=== PATIENT | female | born 1980 | race Two or more races ===

== ENCOUNTER 2025-08-07 00:45 | Inpatient (IN) | payer MEDICAID, SELFPAY ==
[2025-08-07] VITALS (17 sets, daily range): BP systolic 91–163; BP diastolic 66–98; PULSE 72–106; RESP 16–98; TEMP 35.9–37.6; O2SAT 95–100; BMI 25.6; BMI 25.0
--- NOTE | 2025-08-07 01:07 | EKG_ITS ---
[facility] Test Date: 2025-08-07 Pat Name: JOSE JURADO Department: Room: - Gender: Female Bottler: : 1980 Requested By: Miah Stahl Order Number: [id number] Reading MD: Miah Stahl Measurements Intervals [place] Rate: 77 P: 53 MO: 142 QRS: 59 QRSD: 94 T: 48 QT: 394 QTc: 448 Interpretive Statements SINUS RHYTHM MODERATE ST DEPRESSION [0.05+ mV ST DEPRESSION] Compared to ECG 03/29/2018 11:17:09 ST (T wave) deviation now present /store/S0/[id number].pdf
[2025-08-07] MEDS: SODIUM CHLORIDE 0.9% 1000 ML 1,000 ML 999 ML IV ×2 (01:20→05:02)
[2025-08-07 01:42] LABS: Basophils # (Auto) 0.1 Thou/mm3 (0.0-0.2); Basophils % (Auto) 0 % (0-2.5); Eosinophils # (Auto) 0.2 Thou/mm3 (0.0-0.5); Eosinophils % (Auto) 1 % (0-10); Hematocrit 41.4 % (36.0-46.0); Hemoglobin 13.5 g/dL (12.0-16.0); Immature Granulocytes Auto 0.18 Thou/mm3 (0.00-0.00); Lymphocytes # (Auto) 4.1 Thou/mm3 (1.0-4.8); Lymphocytes % (Auto) 15 % (10-50); Mean Corpuscular HGB Conc 32.6 g/dl (31.0-37.0); Mean Corpuscular Hemoglobin 30.8 pg (25.0-35.0); Mean Corpuscular Volume 94 fL (80-100); Monocytes # (Auto) 0.4 Thou/mm3 (0.0-0.8); Monocytes % (Auto) 2 % (0-12); Neutrophils # (Auto) 22.4 Thou/mm3 (1.8-7.7); Neutrophils % (Auto) 82 % (37-80); Nucleated Red Blood Cell # 0.00 Thou/mm3 (0.00-0.00); Nucleated Red Blood Cell % 0 /100 WBC (0); Platelet Count 473 Thou/mm3 (140-440); RDW Standard Deviation 43.1 fL (36.4-46.3); Red Blood Count 4.39 Miln/mm3 (4.00-5.20); White Blood Count 27.4 Thou/mm3 (3.6-11.0)
[2025-08-07 01:56] LABS: Alanine Aminotransferase 18 U/L (10-49); Albumin, Serum 4.9 gm/dL (3.5-5.0); Albumin/Globulin Ratio 1.7 (1.2-2.2); Alkaline Phosphatase 46 U/L (46-116); Anion Gap 17 (7-16); Aspartate Amino Transferase 38 U/L (0-34); BUN/Creatinine Ratio 7 Ratio (12-20); Bilirubin,Total 0.3 mg/dL (0.3-1.2); Blood Urea Nitrogen 8 mg/dL (9-23); Calcium 10.4 mg/dL (8.3-10.6); Calcium (Corrected) 10.4 mg/dL (8.5-10.1); Carbon Dioxide 22.4 mMol/L (20.0-31.0); Chloride 100 mMol/L (98-107); Creatinine (Component) 1.1 mg/dL (0.6-1.3); Estimated Creatinine Clearance 56.0 mL/min (>60); Globulin 2.9 gm/dL (2.3-3.5); Glucose 157 mg/dL (74-106); Osmolality,Calculated 278 (275-295); Sodium 139 mMol/L (136-145); Total Protein 7.8 gm/dL (5.7-8.2); Troponin I < 0.020 ng/mL (0.0-0.045); eGFR > 60 See Note
[2025-08-07 01:58] LABS: Potassium 2.3 mMol/L (3.4-5.1)
--- NOTE | 2025-08-07 02:21 | EDNOTE_ITS ---
ED Syncope RME/HPI General Chief Complaint: Syncope / Near Syncope Stated Complaint: HYPOTENSION Arrival date/time: 08/07/25 00:45 RME / HPI RME / HPI narrative: Dr. Willoughby?s Main ED Evaluation: 45yo female arrives by EMS after patient reportedly suffered from constipation then developed lower abdominal cramping followed by rectal urgency, became lightheaded, diaphoretic, and near syncope. Patiet let herself to ground then to commode then syncopized x2-3 minutes. EMS summoned. Blood pressure was initially 70-80 range. IV established by EMS and 400 cc bolus given with improvement of systolic to 90. PMH HTN. PSH tubal litigation. Nonsmoker, nondrinker. Related Data Home Medications ?Medication ?Instructions ?Recorded ?Confirmed benazepril 20 mg tablet (Lotensin) 20 mg PO QDAY #0 ta bs 07/21/17 03/29/18 hydrochlorothiazide 25 mg tablet 25 mg PO QAM #0 tabs 07/21/17 03/29/18 Allergies Allergy/AdvReac Type Severity Reaction Status Date / Time latex Allergy Rash Verified 03/30/18 12:10 Review of Systems Review of Systems Systems Reviewed: All systems reviewed, normal except as documented Past Medical History Past Medical History NEUROLOGIC: Negative Neurological Disorders or Seizures CARDIAC: Positive Cardiac Disorders and Hypertension (TAKES MED); Negative Congestive Heart Failure RESPIRATORY: Negative Chronic Obstructive Pulmonary Disease (COPD) GASTROINTESTINAL: Negative Gastrointestinal Disorders GENITOURINARY: Negative Genitourinary Disorders or Renal Disease REPRODUCTIVE: Positive Previous Pregnancies (X5) MUSCULOSKELETAL: Positive Musculoskeletal Disorders ENDOCRINE: Negative Endocrine Disorders, Diabetes Mellitus Type 1 or Diabetes Mellitus Type 2 HEMATOLOGIC: Negative Blood Disorders OTHER HISTORY: Positive Chicken Pox; Negative Autoimmune Disease Family History FAMILY HISTORY: Positive Family Psychiatric Problems (FATHER), Family Respiratory Disorders (SISTER), Family Gastrointestinal Problems (MOTHER), Family Cancer (BROTHER) and Family Surgery (MOTHER,SISTER) Surgical History SURGICAL: Positive Tubal Ligation (2005) Social History SMOKING STATUS: Former smoker ED Exam Narrative Physical exam: GENERAL APPEARANCE: alert and oriented x 4, actively having diarrhea, no acute distress VITALS: All vitals were reviewed and the pulse ox is 100% on room air, which is normal according to my interpretation. HEENT: Normocephalic, atraumatic; pupils equal, round, reactive to light; EOMI; mucous membranes pink, moist; oropharynx clear NECK: Supple LUNGS: CTABL; no wheezes, no rales, no rhonchi HEART: Regular rate, regular rhythm; normal S1, S2; no murmurs ABDOMEN: non distended; soft, mild suprapubic tenderness, no guarding, no rebound; no masses, no organomegaly, no hernia BACK: no CVA tenderness EXTREMITIES: atraumatic; no edema NEUROLOGIC: awake; alert and oriented x4; cranial nerves II-XII grossly intact; no focal sensory or motor deficits PSYCHIATRIC: appropriate mood and affect SKIN: warm, dry, slightly pale; no rashes Course Quality Measures none Orders Category Date Time Status EKG (ED ONLY) *Do not use* NOW Care 08/07/25 01:07 Completed Insert IV NOW Care 08/07/25 01:[address] abdomen pelvis wo con Stat Exams 08/07/25 04:37 Ordered EKG (ED Only) Stat Exams 08/07/25 01:07 Draft CBC Stat Lab 08/07/25 01:23 Completed CMP [Comprehensive Metabolic Panel] Stat Lab 08/07/25 01:23 Completed Drug Screen,Urine Stat Lab 08/07/25 01:07 Ordered Magnesium Stat Lab 08/07/25 01:23 Completed Norovirus, EIA (Stool)* Stat Lab 08/07/25 Ordered Stool Culture Stat Lab 08/07/25 04:36 Ordered Stool for WBCs Stat Lab 08/07/25 04:37 Ordered Troponin I Stat Lab 08/07/25 01:23 Completed UA, C/S IF [Urinalysis, C/S if Indicated] Stat Lab 08/07/25 01:07 Ordered POTASSIUM CHL 10 mEq IVPB [Kcl Ivpb] Med 08/07/25 02:19 Active 10 meq in 100 ml IV Q1H Potassium Chloride [K-Dur] Med 08/07/25 02:19 Discontinued 40 meq PO X1 ONE Sodium Chloride 0.9% 1000 ml [Ns] 1,000 ml Med 08/07/25 01:08 Discontinued IV 999 mls/hr Sodium Chloride 0.9% 1000 ml [Ns] 1,000 ml Med 08/07/25 04:37 Active IV 999 mls/hr cefTRIAXone/D5w 1gm IV premix [Rocephin/D5w 1gm IV Med 08/07/25 04:43 Active premix] 1 gm in 50 ml IV X1 metroNIDAZOLE/NS 500 MG IVPB [Flagyl 500 mg IV] Med 08/07/25 04:42 Active 500 mg in 100 ml IV X1 Vital Signs Vital signs: Vital Signs Temperature 96.6 F L 08/07/25 01:10 Pulse Rate 72 08/07/25 01:10 Respiratory Rate 16 08/07/25 01:10 Blood Pressure 91/66 08/07/25 01:10 Pulse Oximetry (%) 100 08/07/25 01:10 Oxygen Delivery Method Room Air 08/07/25 01:10 Syncope MDM Narrative MDM Narrative:: Scribe Attestation: 08/07/25 - Aurora Naranjo am scribing for and in the presence of Dr. Willoughby. 45yo female arrives by EMS after patient reportedly suffered from constipation then developed lower abdominal cramping followed by rectal urgency, became lightheaded, diaphoretic, and near syncope. Patiet let herself to ground then to commode then syncopized x2-3 minutes. Please see PE findings. Lab markers demon strated elevated WBC count 27.4, Hgb 13.5, Plt 473. Chemistries notable for K 2.3, CO2 22, anion gap mildly elevated at 11. Patient was aggressively hydrated, placed on traffic monitor specialist, and had potassium replaced both PO and IV. Patient enrolled in sepsis protocol and referred for CT scan. Blood pressure gradually improved. Patient likely to be admitted for further evaluation, monitoring, and treatment. Dx: vasovagal episode, acute diarrheal illness, hypokalemia, acute sepsis Patient data External records reviewed:: [facility] previous records (Per chart review, patient has no previous ED visits or admissions to this facility.) and EMS form Clinical information provided by:: patient Social determinants that could affect healthcare access:: none Patient has the following chronic illnesses:: HTN How is presenting disease/condition affected by chronic disease/condition?: uneffected by Evaluation data The following diagnostics were reviewed and interpreted by me:: lab results and EKG tracing(s) Lab and/or radiology exams considered but not ordered:: none Interpretation Summary: EKG done at 0113, sinus rhythm, rate of 77, no acute pathological ST segment changes, no ectopy, normal intervals, left axis deviation, according to my interpretation. Medications / Prescriptions Medications or Prescriptions considered but not ordered:: none Medication administrations:: Medication Administration History Potassium Chloride (Kcl Ivpb) 10 meq in 100 mls @ 100 mls/hr IV Q1H NATALYA Stop: 08/07/25 05:18 Last Admin: 08/07/25 04:58 Dose: 100 mls/hr Documented By: Infusion: 08/07/25 04:48 Dose: Infused Documented By: Admin: 08/07/25 03:48 Dose: 100 mls/hr Documented By: Infusion: 08/07/25 03:44 Dose: Infused Documented By: Admin: 08/07/25 02:44 Dose: 100 mls/hr Documented By: CCT Sodium Chloride (Ns) 1,000 mls @ 999 mls/hr IV .Q1H1M ONE Stop: 08/07/25 05:37 Last Admin: 08/07/25 05:02 Dose: 999 mls/hr Documented By: CCT Metronidazole (Flagyl 500 Mg Iv) 500 mg in 100 mls @ 100 mls/hr IV X1 ONE Stop: 08/07/25 05:41 Ceftriaxone Sodium/Dextrose (Rocephin/D5w 1gm Iv Premix) 1 gm in 50 mls @ 100 mls/hr IV X1 ONE Stop: 08/07/25 05:12 Discontinued Medications Sodium Chloride (Ns) 1,000 mls @ 999 mls/hr IV .Q1H1M ONE Stop: 08/07/25 02:08 Last Infusion: 08/07/25 02:58 Dose: Infused Documented By: Admin: 08/07/25 01:20 Dose: 999 mls/hr Documented By: CCT Potassium Chloride (Potassium Chloride 20 Meq Tabcr) 40 meq PO X1 ONE Stop: 08/07/25 02:20 Last Admin: 08/07/25 02:43 Dose: 40 meq Documented By: CCT see above Consultations Consultation(s) initiated? (list below): Yes Consultation #1 (Physician, Specialty, Details): Discussed case with the resident physician, attending Dr. Bravo from Hospitalist service regarding admission. Discussed patients ED course, exam findings, labs, and radiology results. The Hospitalist will pass this case off to the day team. Time: 05:05 Diagnosis Syncope Differential Diagnosis: syncope due to orthostatic hypotension, vasovagal syncope, dehydration and other (electrolyte abnormality) Most likely diagnosis given after review of the tests above:: vasovagal episode, acute diarrheal illness, hypokalemia Admission Indicated Admission indicated?: indicated Admission Request Was there a request for admission?: Yes Admission Attestation Admission request attestation: Discussed case with [] from Hospitalist service regarding admission. Discussed patients ED course, exam findings, labs, and radiology results. The Hospitalist [agrees,declines] to accept the patient for admission. Disposition Plan Disposition Plan: Admit Discharge Plan Plan Patient Disposition: Admit Acute Care w/in Hospital Prescriptions/Referrals Prescriptions/Med Rec: No Action benazepril [Lotensin] 20 MG tablet 20 mg PO QDAY Qty: 0 hydrochlorothiazide 25 MG tablet 25 mg PO QAM Qty: 0 Referrals: Ervin Dean MD [Primary Care Provider, Family Practice] - In 1 week Problem List Clinical Impression: Vasovagal syncope, Diarrhea, Acute hypokalemia, Sepsis Patient/Caregiver Discharge Instructions Print Language: Ecuadorean Stand Alone Forms: Paulina Award Info., Patient Portal Info Letter
[2025-08-07 02:41] LABS: Magnesium 2.5 mg/dL (1.6-2.6)
[2025-08-07] MEDS: POTASSIUM CHL 10 mEq IVPB 10 MEQ/100 ML BAG 100 MEQ IV ×3 (02:44→04:58)
--- NOTE | 2025-08-07 04:37 | XR_ITS ---
Examination: CT abdomen and pelvis without contrast. Coronal 3-D reconstructions. Sagittal 2-D reconstructions. Date and time of exam: August 07, 2025, 0526 hours Onset abdominal pain with hypotension today CTDI: vol (mGy): 6.33 DLP: (mGycm): 338 Technique: Axial images of the abdomen have been obtained, 3 mm slice thickness Intravenous contrast material has not been administered. Low dose protocols were performed. One or more of the following dose reduction techniques were used; automated exposure control, adjustment of the mA and/or KV according to patient size, use of iterative reconstruction technique. Findings: No visualized liver or splenic lesion No gallstones No pancreatic or adrenal mass. No renal or ureteral calculi, no hydronephrosis Fluid distended colon Normal appendix The entire colon especially the transverse colon descending colon and the sigmoid colon including rectum show thickening and significant inflammatory change Also there is abnormal thickening of the johnson of small bowel in the ileal segments Bladder intact Poorly defined uterine masses on this noncontrast study IMPRESSION: Severe colitis enteritis pattern, differential would include Crohn's disease, ulcerative colitis Recommend pelvic sonography follow-up
--- NOTE | 2025-08-07 05:25 | PC.NURSE ---
Pt taken to CT via [facility]
--- NOTE | 2025-08-07 05:56 | PRELIM_ITS ---
CT abdomen and pelvis without intravenous or oral contrast. Axial images with coronal and sagittal reconstructions. Clinical history: Rule out colitis. Findings: The lung bases are clear. Liver, gallbladder, adrenal glands, spleen and pancreas are unremarkable. Normal kidneys. The urinary bladder is normal. There is mucosal thickening of the transverse colon through rectum. Prominent mesenteric fat stranding in the pelvis. The abdominal wall is unremarkable. No acute osseous process. Fibroid uterus with fibroids up to 3 cm. No free intraperitoneal air or fluid. Impression: Prominent colitis of the transverse colon through rectum. Fibroid uterus. Report Electronically Signed By: Aakash Shrestha 08/07/2025 5:55:05 AM [EST]
[2025-08-07] MEDS: cefTRIAXone/D5w 1gm IV premix 1 GM/50 ML BAG IV (06:06)
[2025-08-07] MEDS: metroNIDAZOLE/NS 500 MG IVPB 500 MG/100 ML BAG 100 MG IV (06:34)
[2025-08-07 06:46] LABS: Stool for WBCs Negative (Negative)
--- NOTE | 2025-08-07 07:30 | PC.NURSE ---
REPORT RECEIVED FROM JOANN BERNAL. PT RESTING QUIETLY IN ROOM W/ AT BEDSIDE. NO COMPLAINTS OF PAIN, DISCOMFORT OR DISTRESS. WILL CONT TO MONITOR.
--- NOTE | 2025-08-07 09:19 | ESHP_ITS ---
Documentation for date of: 08/07/25 [facility] History of Present Illness History of present illness: 45-year-old female with a history of hypertension and depression presented to the ED after a witnessed syncopal episode at home. This event was preceded by a three-day history of non-specific stomach pain that progressed to lower abdominal cramping and constipation. Last night at 9:00 PM, she developed sudden rectal urgency, and while on the toilet, she experienced simultaneous vomiting, flushing, and presyncope. Lying on the floor provided transient relief, but upon attempting to return to the toilet, she had a witnessed, brief loss of consciousness. Family members noted she was diaphoretic but reported no seizure activity. Since arriving at the hospital, she has had four episodes of watery diarrhea. She denies recent antibiotic use, known cardiac issues (other than controlled HTN), or a history of seizures, but she does report a similar syncopal event two years prior for which no cardiac cause was identified. ED course: Vitals in ED include temperature 96.6, BP 91/66, pulse 72, resp 16, oxygen saturation 100% on room air. Notable labs include WBC 27.4 with a left shift, potassium 2.3, creatinine 1.1 (baseline creatinine around 0.5), BUN 8, procalcitonin 3.45, lipase 22. CT abdomen showed severe colitis enteritis pattern. Patient received 2 L of 6 of sodium chloride boluses, potassium chloride 80 mill equivalents, ceftriaxone 1 g x 1, metronidazole 500 mg x 1. Past medical history: As stated above. Past surgical history: tubal ligation 19 years ago Allergies: Latex (rash) Family history: Noncontributory. 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 Review of Systems Review of Systems Narrative Review of Systems: All systems reviewed negative unless stated otherwise above. Exam Vital Signs Temp Pulse Resp BP Pulse Ox O2 Del Method 99.0 F 74 20 160/85 H 100 Room Air 08/07/25 08:48 08/07/25 08:48 08/07/25 08:48 08/07/25 08:48 08/07/25 08:48 08/07/25 08:48 Narrative Exam GENERAL: alert and oriented x 4, no acute distress, conversing well but a little sleepy HEENT: Normocephalic, atraumatic; PERRL; EOMI; mucous membranes pink, moist; oropharynx clear NECK: Supple LUNGS: CTABL; no wheezes, no rales, no rhonchi HEART: Regular rate, regular rhythm; normal S1, S2; no murmurs/rubs/gallops ABDOMEN: non distended; soft, mild suprapubic tenderness, no guarding, no rebound; no masses, no organomegaly, no hernia EXTREMITIES: atraumatic; no edema NEURO: awake; cranial nerves II-XII grossly intact; no focal sensory or motor deficits PSYCHIATRIC: appropriate mood and affect SKIN: warm, dry, slightly pale; no rashes Results: Labs 08/07/25 09:08 08/08/25 04:40 Labs: Short CBC 08/07/25 Range/Units 01:23 WBC 27.4 H (3.6-11.0) Thou/mm3 Hgb 13.5 (12.0-16.0) g/dL Hct 41.4 (36.0-46.0) % Plt Count 473 H (140-440) Thou/mm3 BMP 08/07/25 01:23 Sodium 139 Potassium 2.3 L* Chloride 100 Carbon Dioxide 22.4 BUN 8 L Creatinine 1.1 Glucose 157 H Calcium 10.4 Cardiac Enzymes 08/07/25 Range/Units 01:23 Troponin I < 0.020 (0.0-0.045) ng/mL Liver Function 08/07/25 Range/Units 01:23 Total Bilirubin 0.3 (0.3-1.2) mg/dL AST 38 H (0-34) U/L ALT 18 (10-49) U/L Alkaline Phosphatase 46 (46-116) U/L Albumin 4.9 (3.5-5.0) gm/dL Quality Measures Quality Measures none Medications Home Medications and Allergies Home Medications ?Medication ?Instructions ?Recorded ?Confirmed ?Type benazepril 20 mg tablet (Lotensin) 20 mg PO QDAY #0 ta bs 07/21/17 08/07/25 History hydrochlorothiazide 25 mg tablet 25 mg PO QAM #0 tabs 07/21/17 08/07/25 History sertraline 25 mg tablet 25 mg PO QDAY 08/07/2508/07 History Allergies Allergy/AdvReac Type Severity Reaction Status Date / Time latex Allergy Rash Verified 03/30/18 12:10 Visit Medications Acetaminophen (Acetaminophen 325 Mg Tablet) 650 mg PO Q6H PRN PRN Reason: PAIN OR FEVER > 101 Stop: 09/06/25 08:07 Heparin Sodium (Porcine) (Heparin Sod Inj 5000 Unit/Ml Vial) 5,000 unit SC Q8HR NATALYA Stop: 08/21/25 13:59 Piperacillin/Tazobactam/Dextrose (Zosyn) 3.375 gm in 50 mls @ 12.5 mls/hr IV Q8HR NATALYA; Protocol Stop: 08/14/25 13:59 Lactated Ringer's (Lactated Ringers) 1,000 mls @ 100 mls/hr IV .Q10H NATALYA Stop: 08/08/25 04:41 Discontinued Medications Sodium Chloride (Ns) 1,000 mls @ 999 mls/hr IV .Q1H1M ONE Stop: 08/07/25 02:08 Last Infusion: 08/07/25 02:58 Dose: Infused Potassium Chloride (Kcl Ivpb) 10 meq in 100 mls @ 100 mls/hr IV Q1H NATALYA Stop: 08/07/25 05:18 Last Infusion: 08/07/25 06:00 Dose: Infused Sodium Chloride (Ns) 1,000 mls @ 999 mls/hr IV .Q1H1M ONE Stop: 08/07/25 05:37 Last Infusion: 08/07/25 06:12 Dose: Infused Metronidazole (Flagyl 500 Mg Iv) 500 mg in 100 mls @ 100 mls/hr IV X1 ONE Stop: 08/07/25 05:41 Last Admin: 08/07/25 06:34 Dose: 100 mls/hr Ceftriaxone Sodium/Dextrose (Rocephin/D5w 1gm Iv Premix) 1 gm in 50 mls @ 100 mls/hr IV X1 ONE Stop: 08/07/25 05:12 Last Infusion: 08/07/25 06:36 Dose: Infused Piperacillin/Tazobactam/Dextrose (Zosyn) 3.375 gm in 50 mls @ 12.5 mls/hr IV Q8HR NATALYA; Protocol Stop: 08/14/25 08:21 Piperacillin/Tazobactam/Dextrose (Zosyn) 3.375 gm in 50 mls @ 100 mls/hr IV X1 ONE; Protocol Stop: 08/07/25 08:59 Potassium Chloride (Potassium Chloride 20 Meq Tabcr) 40 meq PO X1 ONE Stop: 08/07/25 02:20 Last Admin: 08/07/25 02:43 Dose: 40 meq Assessment & Plan Plan 45-year-old female with a history of hypertension and depression presented to the ED after a witnessed syncopal episode at home. Patient has been admitted to hospital for gastroenteritis requiring supportive management. #Acute diarrhea 2/ #Gastroenteritis #Sepsis ruled out Differentials include viral/bacterial gastroenteritis, C. difficile, IBD Diarrhea that started yesterday, no blood No evidence of endorgan damage CT abdomen 08/07 shows entire colon especially the transverse colon, descending colon, sigmoid colon, including the rectum, thickening and significant inflammatory change. There are also abnormal thickening of the small bowel in the ileal segments. Patient received 2 L of liters of normal saline boluses in ED and blood pressure improved Plan ? Stool culture for viral/C. difficile ? Fecal calprotectin ? Follow blood culture, urine culture #Syncope Likely secondary to vasovagal No history of cardiac disease Blood pressure on admission was low, however responsive to IV fluids Plan ? Obtain orthostatic vitals once blood pressure once blood pressure is stable #Hypokalemia, resolving Secondary to GI losses from vomiting and diarrhea Initial potassium was 2.3 which improved to 3.9 following potassium replacement Plan ?Replete potassium as necessary #History of essential hypertension Patient takes hydrochlorothiazide 25 mg daily, benazepril 20 mg daily Plan ? Resume home medications #History of depression ? Patient takes sertraline 25 mg daily Plan ? Resume home medication Health Maintenance: Diet: Regular GI prophylaxis: None at this time DVT prophylaxis: Heparin) 5000 every 8 hours Antibiotics: Zosyn CODE STATUS: Full Disposition: Med/tele Case discussed with my attending Dr. Madrigal, and senior resident, Dr. Jean Carlos Chambers MD PGY-1 Attending Provider Attestation/Addendum I reviewed labs, imaging, EKG, home medications and prior available records. Face to face evaluation was performed by me. I have personally examined the patient and discussed assessment and plan with the IM team. I reviewed the resident note and agree with the plan with exceptions as below. Acute colitis Leukocytosis Syncope CELESTE Hypokalemia CT showed colitis Started IV Zosyn IV fluids Monitor kidney function. Avoid nephrotoxins Replete potassium as needed and follow-up BMP
[2025-08-07 09:41] LABS: Basophils # (Auto) 0.0 Thou/mm3 (0.0-0.2); Basophils % (Auto) 0 % (0-2.5); Eosinophils # (Auto) 0.0 Thou/mm3 (0.0-0.5); Eosinophils % (Auto) 0 % (0-10); Hematocrit 35.9 % (36.0-46.0); Hemoglobin 11.9 g/dL (12.0-16.0); Immature Granulocytes Auto 0.09 Thou/mm3 (0.00-0.00); Lymphocytes # (Auto) 0.7 Thou/mm3 (1.0-4.8); Lymphocytes % (Auto) 4 % (10-50); Mean Corpuscular HGB Conc 33.1 g/dl (31.0-37.0); Mean Corpuscular Hemoglobin 30.4 pg (25.0-35.0); Mean Corpuscular Volume 92 fL (80-100); Monocytes # (Auto) 0.6 Thou/mm3 (0.0-0.8); Monocytes % (Auto) 3 % (0-12); Neutrophils # (Auto) 16.2 Thou/mm3 (1.8-7.7); Neutrophils % (Auto) 92 % (37-80); Nucleated Red Blood Cell # 0.00 Thou/mm3 (0.00-0.00); Nucleated Red Blood Cell % 0 /100 WBC (0); Platelet Count 354 Thou/mm3 (140-440); RDW Standard Deviation 41.2 fL (36.4-46.3); Red Blood Count 3.91 Miln/mm3 (4.00-5.20); White Blood Count 17.6 Thou/mm3 (3.6-11.0)
[2025-08-07] MEDS: RINGERS LACTATED 1000 ML 1,000 ML 100 ML IV ×2 (09:42→19:25)
[2025-08-07] MEDS: PIPER/TAZO 3.375 GM PREMIX 3.375 GM/50 ML BAG IV ×3 (09:43→21:17)
--- NOTE | 2025-08-07 09:54 | PC.NURSE ---
REPORT CALLED TO HALIMA BERNAL ON TELE. PT TO BE TRANSFERRED TO ROOM #253.
[2025-08-07 10:19] LABS: Alanine Aminotransferase 36 U/L (10-49); Albumin, Serum 4.0 gm/dL (3.5-5.0); Albumin/Globulin Ratio 1.7 (1.2-2.2); Alkaline Phosphatase 35 U/L (46-116); Anion Gap 11 (7-16); Aspartate Amino Transferase 45 U/L (0-34); BUN/Creatinine Ratio 10 Ratio (12-20); Bilirubin,Total 0.5 mg/dL (0.3-1.2); Blood Urea Nitrogen 8 mg/dL (9-23); Calcium 8.5 mg/dL (8.3-10.6); Calcium (Corrected) 8.5 mg/dL (8.5-10.1); Carbon Dioxide 20.6 mMol/L (20.0-31.0); Chloride 108 mMol/L (98-107); Creatinine (Component) 0.8 mg/dL (0.6-1.3); Estimated Creatinine Clearance 76.9 mL/min (>60); Globulin 2.4 gm/dL (2.3-3.5); Glucose 142 mg/dL (74-106); Lipase 22 U/L (12-53); Osmolality,Calculated 279 (275-295); Potassium 3.9 mMol/L (3.4-5.1); Sodium 140 mMol/L (136-145); Thyroid Stimulating Hormone 0.60 uIU/mL (0.55-4.78); Total Protein 6.4 gm/dL (5.7-8.2); eGFR > 60 See Note
--- NOTE | 2025-08-07 10:20 | PC.NURSE ---
Transferred pt to room #352 via w/c accompanied by RN and pt's daughter. Care endorsed to Shawn BERNAL.
[2025-08-07 11:59] LABS: Procalcitonin 3.45 ng/ml (0.0-0.49)
[2025-08-07] MEDS: HEPARIN SOD INJ 5000 UNIT/ML VIAL SC ×2 (13:50→21:17)
[2025-08-07 14:02] LABS: Glucose Estimated Average 100 mg/dL (80-131); Hemoglobin A1C 5.1 % Hgb (4.8-6.0)
[2025-08-07] MEDS: ONDANSETRON INJ 2 MG/ML INJ 2 ML 4 MG IVP (16:38)
[2025-08-07 20:01] LABS: Collection Type, Urine Clean Catch
[2025-08-07 20:14] LABS: Bilirubin,Urine Negative (Negative); Blood,Urine 1+ (Negative); Clarity,Urine Clear (Clear/Hazy); Color,Urine Colorless (Lt Yel-Yel); Culture Indicated,Urine Not Indicated; Glucose, Urine Negative (Negative); Ketones,Urine Negative (Negative); Leukocyte Esterase,Urine Negative (Negative); Nitrite,Urine Negative (Negative); PH,Urine 5.5 (5.0-7.0); Protein,Urine Negative (Neg - Trace); RBC,Urine 20 /hpf (0-3); Specific Gravity,Urine 1.009 (1.001-1.035); Squamous Epithelial Cell,Urine 1 /hpf (0-5); Urobilinogen,Urine Negative mg/dL (0.0-1.0); WBC,Urine 1 /hpf (0-5)
[2025-08-07 20:37] LABS: Amphetamine/Methamp Scrn,U Negative (Negative); Barbiturate Screen,Urine Negative (Negative); Benzodiazepines Screen,Urine Negative (Negative); Benzoylecgonine Screen, Ur Negative (Negative); Fentanyl Screen,Urine Negative (Negative); Opiate Screen,Urine Positive (Negative); THC Screen,Urine Negative (Negative)
[2025-08-07] MEDS: SERTRALINE HCL 25 MG TABLET PO (21:17)
[2025-08-08] VITALS (8 sets, daily range): BP systolic 91–143; BP diastolic 60–85; PULSE 81–122; RESP 13–98; TEMP 36.2–37.7; O2SAT 95–98; BMI 25.0
[2025-08-08] MEDS: PIPER/TAZO 3.375 GM PREMIX 3.375 GM/50 ML BAG IV ×3 (05:27→23:01)
[2025-08-08] MEDS: HEPARIN SOD INJ 5000 UNIT/ML VIAL SC ×2 (05:28→21:05)
[2025-08-08 05:50] LABS: Alanine Aminotransferase 20 U/L (10-49); Albumin, Serum 3.6 gm/dL (3.5-5.0); Albumin/Globulin Ratio 1.7 (1.2-2.2); Alkaline Phosphatase 29 U/L (46-116); Anion Gap 12 (7-16); Aspartate Amino Transferase 24 U/L (0-34); BUN/Creatinine Ratio 10 Ratio (12-20); Bilirubin,Total 0.7 mg/dL (0.3-1.2); Blood Urea Nitrogen 6 mg/dL (9-23); Calcium 8.4 mg/dL (8.3-10.6); Calcium (Corrected) 8.7 mg/dL (8.5-10.1); Carbon Dioxide 25.1 mMol/L (20.0-31.0); Chloride 101 mMol/L (98-107); Creatinine (Component) 0.6 mg/dL (0.6-1.3); Estimated Creatinine Clearance 101.6 mL/min (>60); Globulin 2.1 gm/dL (2.3-3.5); Glucose 143 mg/dL (74-106); Osmolality,Calculated 275 (275-295); Potassium 3.7 mMol/L (3.4-5.1); Sodium 138 mMol/L (136-145); Total Protein 5.7 gm/dL (5.7-8.2); eGFR > 60 See Note
[2025-08-08] MEDS: ACETAMINOPHEN 325 MG TABLET 650 MG PO ×2 (07:40→17:06)
[2025-08-08 07:48] LABS: Basophils # (Auto) 0.0 Thou/mm3 (0.0-0.2); Basophils % (Auto) 0 % (0-2.5); Eosinophils # (Auto) 0.0 Thou/mm3 (0.0-0.5); Eosinophils % (Auto) 0 % (0-10); Hematocrit 34.4 % (36.0-46.0); Hemoglobin 11.6 g/dL (12.0-16.0); Immature Granulocytes Auto 0.07 Thou/mm3 (0.00-0.00); Lymphocytes # (Auto) 2.0 Thou/mm3 (1.0-4.8); Lymphocytes % (Auto) 11 % (10-50); Mean Corpuscular HGB Conc 33.7 g/dl (31.0-37.0); Mean Corpuscular Hemoglobin 30.8 pg (25.0-35.0); Mean Corpuscular Volume 91 fL (80-100); Monocytes # (Auto) 1.2 Thou/mm3 (0.0-0.8); Monocytes % (Auto) 7 % (0-12); Neutrophils # (Auto) 15.0 Thou/mm3 (1.8-7.7); Neutrophils % (Auto) 82 % (37-80); Nucleated Red Blood Cell # 0.00 Thou/mm3 (0.00-0.00); Nucleated Red Blood Cell % 0 /100 WBC (0); Platelet Count 346 Thou/mm3 (140-440); RDW Standard Deviation 41.8 fL (36.4-46.3); Red Blood Count 3.77 Miln/mm3 (4.00-5.20); White Blood Count 18.2 Thou/mm3 (3.6-11.0)
--- NOTE | 2025-08-08 08:18 | XR_ITS ---
Examination: Pelvic ultrasound, transabdominal, complete Technique: Transabdominal ultrasound of the pelvis performed using grayscale imaging Date and time of exam: August 08, 2025, 0833 hours INDICATIONS: Abdominal pain and vomiting beginning 3 days ago, mass in the pelvis in the uterus on CT pelvis study yesterday FINDINGS: Uterus 9.5 cm Multiple uterine masses, anterior 3.1 x 3.3 cm posterior 4.5 x 4.1 cm anterior uterine body 2.5 x 2.6 cm Endometrial stripe 0.5 cm Right ovary 2.8 cm arterial flow Left ovary 2.5 cm arterial flow IMPRESSION: Multiple uterine areas of fibroid degeneration Recommend 6-month follow-up transvaginal pelvic sonography
[2025-08-08] MEDS: RINGERS LACTATED 1000 ML 1,000 ML 100 ML IV (08:38)
--- NOTE | 2025-08-08 10:31 | PD.RESPRO ---
Documentation for date of: 08/08/25 Subjective Subjective Interval history: Patient seen at bedside. No acute overnight events. Patient denies any chest pain, shortness of breath, abdominal pain, nausea, vomiting, dizziness. Imaging and labs reviewed. Patient tachycardic, CT abdomen done 08/07 shows poorly defined uterine masses so decided to do pelvic ultrasound to investigate. Pelvic ultrasound shows multiple fibroids, recommended 6-month follow-up for reevaluation. Patient also receiving 1 L of LR at 100 cc an hour. Patient mentioned does not take benazepril 20 mg daily. Exam Vital Signs Temp Pulse Resp BP Pulse Ox O2 Del Method 98.9 F 81 14 118/76 97 Room Air 08/08/25 08:00 08/08/25 08:37 08/08/25 08:00 08/08/25 08:37 08/08/25 08:00 08/08/25 08:00 Narrative Exam GENERAL: alert and oriented x 4, no acute distress, conversing well but a little sleepy HEENT: Normocephalic, atraumatic; PERRL; EOMI; mucous membranes pink, moist; oropharynx clear NECK: Supple LUNGS: CTABL; no wheezes, no rales, no rhonchi HEART: Regular rate, regular rhythm; normal S1, S2; no murmurs/rubs/gallops ABDOMEN: non distended; soft, mild generalized abdominal tenderness, no guarding, no rebound; no masses, no organomegaly, no hernia EXTREMITIES: atraumatic; no edema NEURO: awake; cranial nerves II-XII grossly intact; no focal sensory or motor deficits PSYCHIATRIC: appropriate mood and affect SKIN: warm, dry, slightly pale; no rashes Objective Labs 08/08/25 04:40 08/08/25 04:40 Labs: Laboratory Results - last 24 hr 08/07/25 08/07/25 08/08/25 09:08 19:45 04:40 WBC 18.2 H RBC 3.77 L Hgb 11.6 L Hct 34.4 L MCV 91 MCH 30.8 MCHC 33.7 RDW Std Deviation 41.8 Plt Count 346 Neut % (Auto) 82 H Lymph % (Auto) 11 [place] % (Auto) 7 Eos % (Auto) 0 Baso % (Auto) 0 Neut # (Auto) 15.0 H Lymph # (Auto) 2.0 [place] # (Auto) 1.2 H Eos # (Auto) 0.0 Baso # (Auto) 0.0 Immature Gran # (Auto) 0.07 H Absolute Nucleated RBC 0.00 Immature Gran % 0 Nucleated RBC % 0 Sodium 140 138 Potassium 3.9 D 3.7 Chloride 108 H 101 Carbon Dioxide 20.6 25.1 Anion Gap 11 12 BUN 8 L 6 L Creatinine 0.8 0.6 Estim Creat Clear Calc 76.9 101.6 eGFR > 60 > 60 BUN/Creatinine Ratio 10 L 10 L Glucose [address] Glu mg/dL 100 Hemoglobin A1c 5.1 Calculated Osmolality 279 275 Calcium 8.5 D 8.4 Corrected Calcium 8.5 D 8.7 Total Bilirubin 0.5 0.7 AST 45 H 24 ALT 36 20 Alkaline Phosphatase 35 L D 29 L Total Protein 6.4 5.7 Albumin 4.0 D 3.6 Globulin 2.4 2.1 L Albumin/Globulin Ratio 1.7 1.7 Lipase 22 Procalcitonin 3.45 H TSH 0.60 Ur Collection Type Clean Catch Urine Color Colorless A Urine Clarity Clear Urine pH 5.5 Ur Specific [place] 1.009 Urine Protein Negative Urine Glucose (UA) Negative Urine Ketones Negative Urine Blood 1+ A Urine Nitrite Negative Urine Bilirubin Negative Urine Urobilinogen (Auto) Negative Ur Leukocyte Esterase Negative Urine RBC 20 H Urine WBC 1 Ur Squamous Epith Cells 1 Urine Bacteria None Ur Culture Indicated? Not Indicated Urine Opiates Screen Positive A Urine Fentanyl Screen Negative Ur Barbiturates Screen Negative U Amphetamin/Meth Scrn Negative U Benzodiazepines Scrn Negative U Cocaine Metab Screen Negative U Marijuana (THC) Screen Negative Quality Measures Quality Measures none Assessment & Plan Assessment Current Active Medications: Generic Name Dose Route Start Last Admin Trade Name Freq PRN Reason Stop Dose Admin Acetaminophen 650 mg 08/07/25 08:08 08/08/25 07:40 Acetaminophen 325 Mg Tablet PO 09/06/25 08:07 650 mg Q6H PRN Administration PAIN OR FEVER > 101 Heparin Sodium (Porcine) 5,000 unit 08/07/25 14:00 08/08/25 05:28 Heparin Sod Inj 5000 Unit/Ml Vial SC 08/21/25 13:59 5,000 unit Q8HR NATALYA Administration Hydrochlorothiazide 25 mg 08/07/25 14:15 08/08/25 08:37 Hydrochlorothiazide 12.5 Mg Capsule PO 09/06/25 14:14 25 mg QDAY NATALYA Administration Piperacillin/Tazobactam/Dextrose 3.375 gm in 50 mls @ 12.5 mls/hr 08/07/25 14:00 08/08/25 05:27 Zosyn IV 08/14/25 13:59 12.5 mls/hr Q8HR NATALYA Administration Protocol Lactated Ringer's 1,000 mls @ 100 mls/hr 08/08/25 08:18 08/08/25 08:38 Lactated Ringers IV 08/08/25 18:17 100 mls/hr .Q10H NATALYA Administration Lisinopril 20 mg 08/07/25 14:15 08/08/25 08:37 Lisinopril 20 Mg Tablet PO 09/06/25 14:14 Not Given QDAY NATALYA Protocol Ondansetron HCl 4 mg 08/07/25 16:31 08/07/25 16:38 Ondansetron Inj 2 Mg/Ml Inj 2 Ml IVP 09/06/25 16:30 4 mg Q6HR PRN Administration NAUSEA OR VOMITING Protocol Sertraline HCl 25 mg 08/07/25 21:00 08/07/25 21:17 Sertraline Hcl 25 Mg Tablet PO 09/06/25 20:59 25 mg HS NATALYA Administration Plan 45-year-old female with a history of hypertension and depression presented to the ED after a witnessed syncopal episode at home. Patient has been admitted to hospital for gastroenteritis requiring supportive management. #Acute diarrhea 2/2 #Gastroenteritis #Sepsis, ruled out Differentials include viral/bacterial gastroenteritis, C. difficile, IBD Diarrhea that started yesterday, no blood No evidence of endorgan damage CT abdomen 08/07 shows entire colon especially the transverse colon, descending colon, sigmoid colon, including the rectum, thickening and significant inflammatory change. There are also abnormal thickening of the small bowel in the ileal segments. Patient received 2 L of liters of normal saline boluses in ED and blood pressure improved Plan ? Continue IV fluids ? Continue Zosyn ? Stool culture for viral/C. difficile ? Fecal calprotectin ? Follow blood culture, urine culture #Syncope, resolved Secondary to orthostatic hypotension 2/2 to dehydration vs HTN meds Orthostatic vitals: Laying blood pressure 143/84; standing blood pressure 133/94 No history of cardiac disease Blood pressure on admission was low, however responsive to IV fluids Plan ?Stopped benazepril ?Continue hydrochlorothiazide 25 mg daily #Uterine fibroids New finding on imaging Transvaginal ultrasound 08/08 shows multiple fibroids Plan ? Follow-up outpatient ? Repeat transvaginal ultrasound in 6 months #History of essential hypertension Patient takes hydrochlorothiazide 25 mg daily Plan ? Resume home medications ? Stop benazepril #History of depression ? Patient takes sertraline 25 mg daily Plan ? Resume home medication #Hypokalemia, resolved Health Maintenance: Diet: Regular GI prophylaxis: None at this time DVT prophylaxis: Heparin 5000u every 8 hours Antibiotics: Zosyn CODE STATUS: Full Disposition: Med/tele Case discussed with my attending Dr. Madrigal, and senior resident, Dr. Jean Carlos Chambers MD PGY-1 Attending Provider Attestation/Addendum I reviewed labs, imaging, EKG, home medications and prior available records. Face to face evaluation was performed by me. I have personally examined the patient and discussed assessment and plan with the IM team. I reviewed the resident note and agree with the plan with exceptions as below. Acute colitis Leukocytosis Syncope CELESTE Hypokalemia Uterine fibroids CT showed colitis Started IV Zosyn IV fluids Trend WBC: Downtrending Follow-up blood cultures: Negative in 24 hours Monitor kidney function. Avoid nephrotoxins Replete potassium as needed and follow-up BMP Ordered pelvic ultrasound that showed uterine fibroids. Follow-up in 6 months
[2025-08-08] MEDS: KETOROLAC INJ 30 MG/ML VIAL 15 MG IVP (18:25)
[2025-08-08] MEDS: SERTRALINE HCL 25 MG TABLET PO (20:37)
[2025-08-09] VITALS (8 sets, daily range): BP systolic 109–123; BP diastolic 67–79; PULSE 95–104; RESP 13–98; TEMP 36.4–37.7; O2SAT 95–98; BMI 28.3
[2025-08-09] MEDS: PIPER/TAZO 3.375 GM PREMIX 3.375 GM/50 ML BAG IV (05:45)
[2025-08-09 06:00] LABS: Basophils # (Auto) 0.0 Thou/mm3 (0.0-0.2); Basophils % (Auto) 0 % (0-2.5); Eosinophils # (Auto) 0.2 Thou/mm3 (0.0-0.5); Eosinophils % (Auto) 1 % (0-10); Hematocrit 29.1 % (36.0-46.0); Hemoglobin 9.5 g/dL (12.0-16.0); Immature Granulocytes Auto 0.05 Thou/mm3 (0.00-0.00); Lymphocytes # (Auto) 2.6 Thou/mm3 (1.0-4.8); Lymphocytes % (Auto) 17 % (10-50); Mean Corpuscular HGB Conc 32.6 g/dl (31.0-37.0); Mean Corpuscular Hemoglobin 30.6 pg (25.0-35.0); Mean Corpuscular Volume 94 fL (80-100); Monocytes # (Auto) 0.8 Thou/mm3 (0.0-0.8); Monocytes % (Auto) 5 % (0-12); Neutrophils # (Auto) 11.8 Thou/mm3 (1.8-7.7); Neutrophils % (Auto) 76 % (37-80); Nucleated Red Blood Cell # 0.00 Thou/mm3 (0.00-0.00); Nucleated Red Blood Cell % 0 /100 WBC (0); Platelet Count 314 Thou/mm3 (140-440); RDW Standard Deviation 44.2 fL (36.4-46.3); Red Blood Count 3.10 Miln/mm3 (4.00-5.20); White Blood Count 15.5 Thou/mm3 (3.6-11.0)
[2025-08-09 06:19] LABS: Alanine Aminotransferase 16 U/L (10-49); Albumin, Serum 3.6 gm/dL (3.5-5.0); Albumin/Globulin Ratio 1.7 (1.2-2.2); Alkaline Phosphatase 36 U/L (46-116); Anion Gap 10 (7-16); Aspartate Amino Transferase 19 U/L (0-34); BUN/Creatinine Ratio 10 Ratio (12-20); Bilirubin,Total 0.5 mg/dL (0.3-1.2); Blood Urea Nitrogen < 5 mg/dL (9-23); Calcium 8.5 mg/dL (8.3-10.6); Calcium (Corrected) 8.8 mg/dL (8.5-10.1); Carbon Dioxide 29.1 mMol/L (20.0-31.0); Chloride 103 mMol/L (98-107); Creatinine (Component) 0.5 mg/dL (0.6-1.3); Estimated Creatinine Clearance 129.1 mL/min (>60); Globulin 2.1 gm/dL (2.3-3.5); Glucose 99 mg/dL (74-106); Osmolality,Calculated 280 (275-295); Potassium 3.7 mMol/L (3.4-5.1); Sodium 142 mMol/L (136-145); Total Protein 5.7 gm/dL (5.7-8.2); eGFR > 60 See Note
--- NOTE | 2025-08-09 09:21 | PC.SS ---
Follow up note: Blood cultures are pending. On IV antibiotic. Pt will return home upon dc.
--- NOTE | 2025-08-09 11:41 | ESDS_ITS ---
Planned Discharge Date 08/09/25 DS: Providers Provider Date of admission: 08/07/25 08:08 Primary care physician: Ervin Dean MD Admitting Provider: Naun Madrigal MD Attending Provider on Admission: Naun Madrigal MD Attending Provider on DC: Nuan Madrigal MD Discharging Provider: Naun Madrigal MD DS: Diagnosis Problem List Completed Was Problem List Reviewed/Reconciled?: Yes Hospital Course Hospital Course Hospital course: 45-year-old female with a history of hypertension and depression presented to the ED after a witnessed syncopal episode at home. Patient has been admitted to hospital for gastroenteritis requiring supportive management. ED course: Vitals in ED included temperature 96.6, BP 91/66, pulse 72, resp 16, oxygen saturation 100% on room air. Notable labs included WBC 27.4 with a left shift, potassium 2.3, creatinine 1.1 (baseline creatinine around 0.5), BUN 8, procalcitonin 3.45, lipase 22. CT abdomen showed severe colitis enteritis pattern. Patient received 2 L of sodium chloride boluses, potassium chloride 80 mill equivalents, ceftriaxone 1 g x 1, metronidazole 500 mg x 1. Hospital course: The patient presented with acute diarrhea and vomiting likely due to viral gastroenteritis and was successfully managed with IV fluid resuscitation and electrolyte repletion, leading to the resolution of these symptoms. A brief syncopal episode was attributed to orthostatic hypotension secondary to dehydration. An incidental finding on a screening CT abdomen was a uterine mass, which subsequent transvaginal ultrasound characterized as multiple fibroids; follow-up with a repeat TVUS is recommended in six months. At time of discharge patient is progressing back to baseline. Discharge instructions: Please follow-up in 6 months with [facility] for uterine fibroid seen on pelvic ultrasound Continue all home medications as prescribed Please follow-up with your PCP within 1 week of discharge or follow-up at the [facility] [address] [place] [address] If your symptoms worsen or if you develop new fever, chest pain, shortness of breath or severe abdominal pain - please come back to the ED immediately. Admission diagnoses: #Acute diarrhea 2/2 #Gastroenteritis #Sepsis, ruled out #Syncope, resolved #Uterine fibroids #History of essential hypertension #History of depression #Hypokalemia, resolved Case discussed with my attending Dr. Sette, and senior resident, Dr. Jean Carlos Chambers MD PGY-1 Status at Discharge Overall status at discharge: patient is progressing back to baseline Time Spent with Patient Time attestation: Total time spent providing and/or coordinating discharge services: Time spent: Greater than 30 minutes Exam Vital Signs Temp Pulse Resp BP Pulse Ox O2 Del Method 97.6 F 102 H 18 123/71 98 Room Air 08/09/25 10:49 08/09/25 10:49 08/09/25 10:49 08/09/25 10:49 08/09/25 10:49 08/09/25 10:49 Narrative Exam GENERAL: alert and oriented x 4, no acute distress, conversing well HEENT: Normocephalic, atraumatic; PERRL; EOMI; mucous membranes pink, moist; oropharynx clear NECK: Supple LUNGS: CTABL; no wheezes, no rales, no rhonchi HEART: Regular rate, regular rhythm; normal S1, S2; no murmurs/rubs/gallops ABDOMEN: non distended; soft, mild generalized abdominal tenderness, no guarding, no rebound; no masses, no organomegaly, no hernia EXTREMITIES: atraumatic; no edema NEURO: awake; cranial nerves II-XII grossly intact; no focal sensory or motor deficits PSYCHIATRIC: appropriate mood and affect SKIN: warm, dry, slightly pale; no rashes Discharge Plan Plan Patient Disposition: HOME (Self Care) Care Plan Goals: Please follow-up in 6 months with [facility] for uterine fibroid seen on pelvic ultrasound Continue all home medications as prescribed Please follow-up with your PCP within 1 week of discharge or follow-up at the [facility] [address] [place] [address] If your symptoms worsen or if you develop new fever, chest pain, shortness of breath or severe abdominal pain - please come back to the ED immediately. Prescriptions/Referrals Prescriptions/Med Rec: Continued benazepril [Lotensin] 20 MG tablet 20 mg PO QDAY Qty: 0 hydrochlorothiazide 25 MG tablet 25 mg PO QAM Qty: 0 sertraline 25 mg tablet 25 mg PO QDAY Patient Comments: take 1 tablet by mouth once daily Referrals: Ervin Dean MD [Primary Care Provider, Family Practice] Patient/Caregiver Discharge Instructions Discharge Activity: activity as tolerated and other Other Discharge Activity Instructions:: Stay consistent with bowel regimen to avoid constipation Education Materials: ED Gastroenteritis, Noninfectious, ED Gastroenteritis, Viral (Adult) Print Language: Serbian Stand Alone Forms: Paulina Award Info., Patient Portal Info Letter Discharge Order Discharge Orders: Discharge (Routine); Ordered 08/09/25 Ordered By: Luis Chambers Quality Discharge Quality Measures VTE prophylaxis Attestestation MD Attestation I reviewed labs, imaging, EKG, home medications and prior available records. Face to face evaluation was performed by me. I have personally examined the patient and discussed assessment and plan with the IM team. I reviewed the resident note and agree with the plan with exceptions as below. Acute colitis Leukocytosis Syncope CELESTE, resolved Hypokalemia Uterine fibroids CT showed colitis Encourage oral hydration Trend WBC: Downtrending Follow-up blood cultures: Negative to date Ordered pelvic ultrasound that showed uterine fibroids. Follow-up in 6 months Time spent is 35 minutes. More than 50% of the time was spent on patient education and coordination of care.
--- NOTE | 2025-08-09 12:21 | PC.NURSE ---
PT DISCHARGED AT 1215 WITH FAMILY AT BEDSIDE. TELE AND IV X2 REMOVED. PT VERBALIZED UNDERSTANDING FROM DISCHARGE PAPERWORK. QUESTION ADDRESSED.
[2025-08-09 15:04] LABS: Band Neutrophils (Manual) 21 % (0-6); Eosinophils (Manual) 1 % (0-4); Lymphocytes (Manual) 20 % (20-44); Neutrophils (Manual) 58 % (50-70)
[2025-08-10 06:38] LABS: Norovirus, EIA (Stool)* NOT DETECTED
== END 2025-08-09 12:15 | disposition home or self-care (01) | DRG 249 ==
LOC: SERX 05:07 → SERHOLD 08:22 → S2NX 08-08 06:00 → S2SX 08-08 06:00
PROVIDERS: Admitting Provider Student in an Organized Health Care Education/Training Program; Emergency Provider Emergency Medicine; PCP Family Medicine; Visit Provider Student in an Organized Health Care Education/Training Program
DX: A08.4 Viral intestinal infection, unspecified (principal); F32.A Depression, unspecified; I10 Essential (primary) hypertension; K59.00 Constipation, unspecified; Z87.891 Personal history of nicotine dependence; E87.6 Hypokalemia; E86.0 Dehydration; I95.1 Orthostatic hypotension; N17.9 Acute kidney failure, unspecified; D25.9 Leiomyoma of uterus, unspecified; Z79.899 Other long term (current) drug therapy
CPT/HCPCS: 36415; 74176; 76856; 80053; 80307; 81001; 83036; 83690; 83735; 83993; 84145; 84443; 84484; 85025; 87015; 87040; 87045; 87046; 87205; 87329; 87338; 87449; 87899; 93005; 96361; 96365; 96366; 96372; 99284; J0696; J1644; J1885; J2405; J2543; J3480; J3490; J7030; J7120; A9270; J1836